=== PATIENT | male | born 1955 | race Caucasian/White ===

== ENCOUNTER 2018-05-08 08:46 | Inpatient (IN) | payer MEDICARE ==
[2018-05-08 09:22] LABS: BASO % 0.6 % (0-6); EOS % 6.3 % (0-6); GRAN % 57.7 % (47-80); HEMATOCRIT 35.5 % (42.0-52.0); HEMOGLOBIN 11.2 gm/dl (14.0-18.0); LYMPH % 27.7 % (16-45); MEAN CELL VOLUME 99.4 fl (81-97); MEAN CORPUSCULAR HGB CONC 31.5 g/dl (32-36); MEAN PLATELET VOLUME 8.3 fl (7.4-10.4); MONO % 7.7 % (0-9); PLATELET COUNT 532 K/uL (130-400); RED BLOOD COUNT 3.57 M/uL (4.40-5.70); WHITE BLOOD COUNT W/O DIFF 5.1 K/uL (4.2-12.2)
[2018-05-08 09:23] LABS: MEAN CORPUSCULAR HEMOGLOBIN 31.3 pg (27-33)
--- NOTE | 2018-05-08 09:30 | Emergency Department Record ---
History of Present Illness - General Chief Complaint: Back Pain/Injury Stated Complaint: REDDNESS AROUND PUMP IMPLANT SITE Time Seen by Provider: 05/08/18 08:59 Source: Patient Mode of Arrival: Ambulatory Limitations: No limitations - History of Present Illness Initial Comments: pt had a pain pump placed in february. he now has increasing erythema over site. his family doctor started him on levaquin 4 days ago. he has had a pain pump in the past that had to be removed because of infection MD Complaint: Back pain Onset/Timin -: Week(s) Similar Symptoms Previously: No Place: Home Radiation: None Consistency: Constant Improves With: None Worsens With: None Context: Unknown Associated Symptoms: Denies other symptoms - Related Data Home Medications Medication Instructions Recorded Confirmed Last Taken Duloxetine HCl [Cymbalta] 60 mg PO DAILY 05/08/18 05/08/18 Unknown Gabapentin 300 mg PO TID 05/08/18 05/08/18 Unknown Hydromorphone HCl [Dilaudid 0.5 0.5 mg .ROUTE DAILY 05/08/18 05/08/18 Unknown mg/0.5 ml Syringe] Levofloxacin [Levaquin] 500 mg PO DAILY 05/08/18 05/08/18 Unknown Oxycodone HCl/Acetaminophen 10 mg PO Q6H 05/08/18 05/08/18 Unknown [Percocet 10mg/325mg] Allergies Allergy/AdvReac Type Severity Reaction Status Date / Time aspirin [ASPIRIN] Allergy Unknown Unverified 11/15/13 10:15 Penicillins [PENICILLINS] Allergy Unknown Unverified 11/15/13 10:15 Travel Screening - Travel/Exposure Within Last 30 Days Have you traveled within the last 30 days?: No Review of Systems Reviewed: No additional complaints except as noted below Constitutional: Reports: As per HPI. Denies: Chills, Fever, Malaise, Night sweats, Weakness, Weight change Eyes: Reports: As per HPI. Denies: Eye discharge, Eye pain, Photophobia, Vision change ENT: Reports: As per HPI. Denies: Congestion, Dental pain, Ear pain, Epistaxis , Hearing loss, Throat pain Respiratory: Reports: As per HPI. Denies: Cough, Dyspnea, Hemoptysis, Stridor, Wheezes Cardiovascular: Reports: As per HPI. Denies: Arrhythmia, Chest pain, Dyspnea on exertion, Edema, Murmurs, Orthopnea, Palpitations, Paroxysmal nocturnal dyspnea, Rheumatic Fever, Syncope Endocrine: Reports: As per HPI. Denies: Fatigue, Heat or cold intolerance, Polydipsia, Polyuria Gastrointestinal: Reports: As per HPI. Denies: Abdominal pain, Constipation, Diarrhea, Hematemesis, Hematochezia, Melena, Nausea, Vomiting Genitourinary: Reports: As per HPI. Denies: Dysuria, Frequency, Hematuria, Incontinence, Retention, Testicular pain, Testicular mass, Urgency Musculoskeletal: Reports: As per HPI. Denies: Arthralgia, Back pain, Gout, Joint swelling, Myalgia, Neck pain Skin: Reports: As per HPI. Denies: Bruising, Change in color, Change in hair/ nails, Lesions, Pruritus, Rash Neurological: Reports: As per HPI. Denies: Abnormal gait, Confusion, Headache, Numbness, Paresthesias, Seizure, Tingling, Tremors, Vertigo, Weakness Psychiatric: Reports: As per HPI. Denies: Anxiety, Auditory hallucinations, Depression, Homicidal thoughts, Suicidal thoughts, Visual hallucinations Hematological/Lymphatic: Reports: As per HPI. 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 factor five clotting disorder; never tested alot of it in the family) Hx Blood Transfusions: Yes (1976) Family Medical History Any Significant Family History?: Yes Family Hx Comment (NOT TO BE USED IN PLACE OF ITEMS BELOW): factor five clotting disorder ? carrier? (mother, sisters, and pt daughter all have it) Physical Exam - General General Appearance: Alert, Oriented x3, Cooperative, No acute distress - Head Head exam: Normal inspection - Eye Eye exam: Normal appearance, PERRL, EOMI Pupils: Normal accommodation - ENT ENT exam: Normal exam, Mucous membranes moist, Normal external ear exam, Normal orophraynx Ear exam: Normal external inspection. negative: External canal tenderness Nasal Exam: Normal inspection. negative: Discharge, Sinus tenderness Mouth exam: Normal external inspection, Tongue normal Teeth exam: Normal inspection. negative: Dental caries Throat exam: Normal inspection. negative: Tonsillar erythema, Tonsillar exudate - Neck Neck exam: Normal inspection, Full ROM. negative: Tenderness - Respiratory Respiratory exam: Normal lung sounds bilaterally. negative: Respiratory distress - Cardiovascular Cardiovascular Exam: Regular rate, Normal rhythm, Normal heart sounds - GI/Abdominal GI/Abdominal exam: Soft, Normal bowel sounds. negative: Tenderness - Rectal Rectal exam: Deferred - exam: Deferred - Extremities Extremities exam: Normal inspection, Full ROM, Normal capillary refill. negative: Tenderness - Back Back exam: Reports: Full ROM, Rash noted (erythema and swelling over pain pump) , Tenderness. Denies: Muscle spasm - Neurological Neurological exam: Alert, CN II-XII intact, Normal gait, Oriented X3 - Psychiatric Psychiatric exam: Normal affect, Normal mood - Skin Skin exam: Dry, Intact, Normal color, Warm Course Vital Signs 05/08/18 08:51 Temperature 97.9 F Pulse Rate 78 Respiratory 16 Rate Blood Pressure 133/85 Pulse Ox 96 Medical Decision Making - Lab Data Result diagrams: 05/08/18 09:15 05/08/18 09:15 Lab Results 05/08/18 Range/Units 09:15 WBC 5.1 (4.2-12.2) K/uL RBC 3.57 L (4.40-5.70) M/uL Hgb 11.2 L (14.0-18.0) gm/dl Hct 35.5 L (42.0-52.0) % MCV 99.4 H (81-97) fl MCH 31.3 (27-33) pg MCHC 31.5 L (32-36) g/dl RDW 13.0 (11.5-14.5) % Plt Count 532 H (130-400) K/uL MPV 8.3 (7.4-10.4) fl Gran % 57.7 (47-80) % Lymphocytes % 27.7 (16-45) % Monocytes % 7.7 (0-9) % Eosinophils % 6.3 H (0-6) % Basophils % 0.6 (0-6) % Disposition Disposition: Admit Clinical Impression: Cellulitis Qualifiers: Site of cellulitis: trunk Site of cellulitis of trunk: back Qualified Code(s): L03.312 - Cellulitis of back [any part except buttock] Disposition: Still a Patient at [facility] Decision to Admit: Admit from ER Decision to Admit Date: 05/08/18 Decision to Admit Time: 11:15 Forms: Patient Portal Access Quality - Quality Measures Quality Measures: N/A - Blood Pressure Screening Does Patient Have Any of the Following: No Blood Pressure Classification: Pre-Hypertensive BP Reading Systolic Measurement: 133 Diastolic Measurement: 85 Screening for High Blood Pressure: < Pre-Hypertensive BP, F/U Documented > [ [id number]] Pre-Hypertensive Follow-up Interventions: Follow-up with rescreen every year.
[2018-05-08 09:35] LABS: BLOOD UREA NITROGEN 14 mg/dL (8-23); CREATININE 1.2 mg/dL (0.7-1.2); EST GLOMERULAR FILTRATION RATE > 60 mL/min
[2018-05-08 09:38] LABS: GLUCOSE,RANDOM 86 mg/dL (74-109)
[2018-05-08] MEDS ORDERED: ACETAMINOPHEN 500 MG TABLET PO PRN (12:17)
[2018-05-08] MEDS ORDERED: OXYCODONE/APAP 10MG-325MG TABLET PO SCH (12:17)
[2018-05-08] MEDS: OXYCODONE/APAP 10MG-325MG TABLET PO SCH ×3 (13:13→21:20)
[2018-05-08] MEDS: NICOTINE 21 MG/24 HOUR PATCH TD SCH (13:13)
[2018-05-08] MEDS: CLINDAMYCIN 600MG/50ML PREMIX 600 MG/50 ML BAG IVPB SCH ×2 (13:14→21:19)
--- NOTE | 2018-05-08 15:36 | Rehab Evaluation ---
Patient Information - Patient Information Diagnosis: cellulitis Ordered Treatment: PT Evaluate and Treat Status: Initial Evaluation History: Detail (The patient presented to ED with complaints of redness in area of pain pump. The patient was transferred to inpatient floor for infusions. The patient was referred to recent frequent falls.) Past Medical/Surgical Hx: PAST MEDICAL/SURGICAL HISTORY Past Surgical History pain pump removal -2016 for infection in spine pain pump pocket revision PAIN PUMP TRIAL/IMPLANT WITH DILAUDID RT LEG BKA WITH FEW SX TO CORRECT KNEE SCOPES Pain pump placed 2017 PMH - Respiratory Hx Respiratory Disorders Yes Hx Asthma Yes: in Spring sometimes from pollen no problems or inhaler for 2 yrs. Hx Bronchitis Yes PMH - Cardiovascular Hx Cardiovascular Disorders Yes Hx Deep Vein Thrombosis Yes: right leg 1976 from traumatic injury led to BTKA Hx Hypertension Yes: on meds good control PMH - Neuro Hx Neurological Disorders No PMH - GI Hx Gastrointestinal Disorders No PMH - Hx Genitourinary Disorders No PMH - Endocrine Hx Endocrine Disorders No PMH - Musculoskeletal Hx Musculoskeletal Disorders Yes Hx Arthritis Yes Comment: RT BKA FROM WORK ACCIDENT PMH - Psych Hx Psychiatric Problems Yes Hx Depression Yes PMH - Hematology/Oncology Hx Hematology/Oncology Yes Disorders Hx Clotting Problems Yes: ? factor five clotting disorder; never tested alot of it in the family Premorbid Status: Detail (The patient reports he is independent with all mobility and ambulates with cane and without device with R prosthesis.) Social History: Detail (The patient lives with spouse in 2 story house with 2 steps at the enterance and 13 steps to the second story. One handrail is present on both sets of stairs. The patient's bathroom is equipped with a tub/ shower combination and a standard toilet. No grab bars are present. The patient completes the laundry , most of the cleaning and yard work.) Precautions: [place], Fall - Time With Patient Total Time Spent With Patient (Min): 30 Treatment Procedures: Detail (Initial Evaluation) Subjective Information - Subjective Information Per Patient (The patient reports after he started taking lisinopril a few weeks ago , he passed out 3 times and fell. He denies falling since he discontinued the medication.) Objective Data - Pain Pain Present: Yes (The patient complains of R side lower back, buttock region pain radiating into R hip and inot the front of R residual limb. The patient also complains of tingling in the same region. The patient did not rate his pain using 0-10 pain scale.) - Mental Status Patient Orientation: Oriented x3 - Visual Perception Appears within normal limits for therapeutic activities - ROM Within normal limits - Strength/Tone Within normal limits (The patient's bilateral UE and LE strength was generally 5 /5.) - Bed Mobility Independent (The patient was independent with supine to and from sit and rolling.) - Transfers Independent (The patient was independent with sit to and from stand transfer.) - Balance Balance Sitting: Good Balance Standing: Good (The patient scored 26/28 using the Tinetti Assessment Tool which is in the low risk for falling category.) - Sensation Intact - Gait Detail (The patient ambulated without assistive device independently 20 feet x 1 with no gait deviations.) Therapy Assessment - Therapy Assessment Detail (The patient exhibits independence with all mobility and ambulation, normal strength and low risk for fall using the Tinetti Assessment Tool. Due to patient's history of falls however, it was explained to patient he should call Nursing when going to the bathroom or ambulating. Due to stable condition the patient the patient's PT eval was low complexity.) Patient Education - Patient Education Teaching Topic: Precautions (The patient is aware of the safety precaution of calling nursing staff when going to the bathroom or ambulating and demonstrated good understanding of this.) Response: Verbalize Understanding Teaching Method: Discussion Teaching Recipient: Patient Barriers To Learning: None Problem List - Problem List Physical Therapy Problem List: Detail (History of falls) Goals - Goals Physical Therapy Goals: No PT goals at this time. Good balance and independent with mobility. Prognosis - Prognosis Good Plan - Plan Physical Therapy Plan: No further PT is required. Patient it so ambulate with nursing staff present for safety.
[2018-05-08] MEDS ORDERED: GABAPENTIN 300 MG CAPSULE PO SCH ×2 (16:00→22:00)
--- NOTE | 2018-05-08 16:13 | History & Physical ---
History of Present Illness - Date of Service Date of Service for History & Physical: 05/09/18 - History of Present Illness Admitting Diagnosis: cellulitis History of Present Illness: Mr. Schumacher is a 62 year old male who presented to the ED on for evaluation of redness around pain pump. His pain pump was inserted by Dr. Keane in February 2018, he recently fell (due to low BP per pt.) and he has been experiencing increasing erythema over the pump site. Dr. Keane started him on levaquin 4 days ago. He does have a history of pain pump infection in the past, leading to removal (different site). 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 In the ED, his vitals were stable. CBC and CMP were unremarkable. Abd/ pelvis CT demonstrated some soft tissue swelling around pain pump, possible fluid pocket, no abscess visualized, however, there was a great deal of artifact due to metal pump. Lumbar spine xray demonstrated proper placement of pain pump and catheter. Due to pt's history of past infection and increasing erythema around his pain pump, he was admitted for IV antibiotics and monitoring. 05/08/18 Pt. is sitting up in bed, he currently denies pain. There is some redness around the border of his pain pump, left lower back. Vitals have remained stable. Plan to continue IV clindamycin 600mg q8h. PT eval ordered to assess strength and balance with recent hx of fall- pt. was found to have normal strength and low risk for fall. 05/09/18 Pt. is sitting up in bed. He denies pain, VS have remained stable and his am labs were unremarkable. Area of erythema/redness has not progressed since yesterday- appears to look more like bruising today. Plan to d/c home today with PO clindamycin and pt. to f/u with Dr. Keane on 05/14. PCP: Dr. Mendoza-Braulio Pain management: Dr. Keane Travel Screening - Travel/Exposure Within Last 30 Days Have you traveled within the last 30 days?: No - Travel/Exposure Within Last Year Have you traveled outside the [place] in the last year?: No - Additonal Travel Details Have you been exposed to anyone with a communicable illness?: No - Travel Symptoms Symptom Screening: None Review of Systems Constitutional: Reports: As per HPI. Denies: Chills, Fever, Malaise, Night sweats, Weakness, Weight change Eyes: Reports: As per HPI. Denies: Eye discharge, Eye pain, Photophobia, Vision change ENT: Reports: As per HPI. Denies: Congestion, Dental pain, Ear pain, Epistaxis , Hearing loss, Throat pain Respiratory: Reports: As per HPI. Denies: Cough, Dyspnea, Hemoptysis, Stridor, Wheezes Cardiovascular: Reports: As per HPI. Denies: Arrhythmia, Chest pain, Dyspnea on exertion, Edema, Murmurs, Orthopnea, Palpitations, Paroxysmal nocturnal dyspnea, Rheumatic Fever, Syncope Endocrine: Reports: As per HPI. Denies: Fatigue, Heat or cold intolerance, Polydipsia, Polyuria Gastrointestinal: Reports: As per HPI. Denies: Abdominal pain, Constipation, Diarrhea, Hematemesis, Hematochezia, Melena, Nausea, Vomiting Genitourinary: Reports: As per HPI. Denies: Dysuria, Frequency, Hematuria, Incontinence, Retention, Testicular pain, Testicular mass, Urgency Musculoskeletal: Reports: As per HPI. Denies: Arthralgia, Back pain, Gout, Joint swelling, Myalgia, Neck pain Skin: Reports: As per HPI. Denies: Bruising, Change in color, Change in hair/ nails, Lesions, Pruritus, Rash Neurological: Reports: As per HPI. Denies: Abnormal gait, Confusion, Headache, Numbness, Paresthesias, Seizure, Tingling, Tremors, Vertigo, Weakness Psychiatric: Reports: As per HPI. Denies: Anxiety, Auditory hallucinations, Depression, Homicidal thoughts, Suicidal thoughts, Visual hallucinations Hematological/Lymphatic: Reports: As per HPI. Denies: Anemia, Blood Clots, Easy bleeding, Easy bruising, Swollen glands Past Medical History - SOCIAL HISTORY Smoking Status: Current every day smoker Alcohol Use: None Drug Use: None - RESPIRATORY Hx Respiratory Disorders: Yes Hx Asthma: Yes (in Spring sometimes from pollen no problems or inhaler for 2 yrs.) Hx Bronchitis: Yes - CARDIOVASCULAR Hx Cardio Disorders: Yes Hx Deep Vein Thrombosis: Yes (right leg 1977 from traumatic injury led to BTKA) Hx Hypertension: Yes (on meds good control) - NEURO Hx Neuro Disorders: No - GI Hx GI Disorders: No - Hx Genitourinary Disorders: No - ENDOCRINE Hx Endocrine Disorders: No - MUSCULOSKELETAL Hx Musculoskeletal Disorders: Yes Hx Arthritis: Yes Comment:: RT BKA FROM WORK ACCIDENT - PSYCH Hx Psych Problems: Yes Hx Depression: Yes - HEMATOLOGY/ONCOLOGY Hx Hematology/Oncology Disorders: Yes Hx Clotting Problems: Yes (? factor five clotting disorder; never tested alot of it in the family) Hx Blood Transfusions: Yes (1976) Family Medical History Any Significant Family History?: Yes Family Hx Comment (NOT TO BE USED IN PLACE OF ITEMS BELOW): factor five clotting disorder ? carrier? (mother, sisters, and pt daughter all have it) H&P Meds/Allergies - Allergies Allergies: Allergies Allergy/AdvReac Type Severity Reaction Status Date / Time aspirin [ASPIRIN] Allergy Unknown Unverified 11/15/13 10:15 Penicillins [PENICILLINS] Allergy Unknown Unverified 11/15/13 10:15 - Home Medications Home Medications Medication Instructions Recorded Confirmed Last Taken Duloxetine HCl [Cymbalta] 60 mg PO DAILY 05/08/18 05/08/18 Unknown Gabapentin 300 mg PO TID 05/08/18 05/08/18 Unknown Hydromorphone HCl [Dilaudid 0.5 0.5 mg .ROUTE DAILY 05/08/18 05/08/18 Unknown mg/0.5 ml Syringe] Levofloxacin [Levaquin] 500 mg PO DAILY 05/08/18 05/08/18 Unknown Oxycodone HCl/Acetaminophen 10 mg PO Q6H 05/08/18 05/08/18 Unknown [Percocet 10mg/325mg] - Active Medications Active Medications: Current Medications Acetaminophen (Tylenol 500mg Tab) 1,000 mg PO Q6H PRN PRN Reason: PAIN - MILD(1-4)/FEVER Duloxetine HCl (Cymbalta) 60 mg PO DAILY [facility] Gabapentin (Neurontin) 300 mg PO 1000,1600 [facility] Gabapentin (Neurontin) 600 mg PO QHS [facility] Gabapentin (Neurontin) 200 mg PO QHS [facility] Clindamycin Phosphate (Cleocin 600 [id number]) 600 mg in 50 mls @ 100 mls/ hr IVPB Q8HR [facility] Last Infusion: 05/08/18 13:56 Dose: Infused Nicotine (Nicotine 21mg) 1 patch TD DAILY [facility] Last Admin: 05/08/18 13:13 Dose: 1 patch Oxycodone/Acetaminophen (Percocet 10-325 Mg Tablet) 2 each PO 0800,2100 [facility] Oxycodone/Acetaminophen (Percocet 10-325 Mg Tablet) 1 each PO 1200,1600 [facility] Last Admin: 05/08/18 13:13 Dose: 1 each Physical Exam - Vital Signs Vital Signs: Vital Signs - Last 24 Hrs Temp Pulse Pulse Resp BP BP Pulse Ox 05/08/18 12:36 82 18 05/08/18 12:10 98.4 F 82 18 110/72 96 05/08/18 11:38 74 18 132/93 97 05/08/18 08:51 97.9 F 78 16 133/85 96 - General General Appearance: Alert, Oriented x3, Cooperative, No acute distress Limitations: No limitations - Head Head exam: Normal inspection - Eye Eye exam: Normal appearance, PERRL, EOMI Pupils: Normal accommodation - ENT ENT exam: Normal exam, Mucous membranes moist, Normal external ear exam, Normal orophraynx Ear exam: Normal external inspection. negative: External canal tenderness Nasal Exam: Normal inspection. negative: Discharge, Sinus tenderness Mouth exam: Normal external inspection, Tongue normal Teeth exam: Normal inspection. negative: Dental caries Throat exam: Normal inspection. negative: Tonsillar erythema, Tonsillar exudate - Neck Neck exam: Normal inspection, Full ROM. negative: Tenderness - Respiratory Respiratory exam: Normal lung sounds bilaterally. negative: Respiratory distress - Cardiovascular Cardiovascular Exam: Regular rate, Normal rhythm, Normal heart sounds - GI/Abdominal GI/Abdominal exam: Soft, Normal bowel sounds. negative: Tenderness - Rectal Rectal exam: Deferred - exam: Deferred - Extremities Extremities exam: Normal inspection, Full ROM, Normal capillary refill. negative: Tenderness - Back Back exam: Reports: Full ROM, Rash noted (erythema and swelling over pain pump) , Tenderness. Denies: Muscle spasm - Neurological Neurological exam: Alert, CN II-XII intact, Normal gait, Oriented X3 - Psychiatric Psychiatric exam: Normal affect, Normal mood - Skin Skin exam: Dry, Intact, Normal color, Warm Results - Labs Result Diagrams: 05/09/18 06:00 05/09/18 06:00 Labs Last 24 Hours: Laboratory Results - last 24 hr 05/08/18 05/08/18 09:15 09:15 WBC 5.1 RBC 3.57 L Hgb 11.2 L Hct 35.5 L MCV 99.4 H MCH 31.3 MCHC 31.5 L RDW 13.0 Plt Count 532 H MPV 8.3 Gran % 57.7 Lymphocytes % 27.7 Monocytes % 7.7 Eosinophils % 6.3 H Basophils % 0.6 Sodium 141 Potassium 4.2 Chloride 103 Carbon Dioxide 27.0 Anion Gap 11.0 BUN 14 Creatinine 1.2 Estimated GFR > 60 Random Glucose 86 Calcium 8.7 L VTE H&P Assessment - Risk for VTE Risk for VTE: Yes Risk Level: Low Risk Assessment Date: 05/08/18 Risk Assessment Time: 16:09 VTE Orders Placed or Will Be Placed: Yes Plan - Inpatient Certification Inpatient Certification: Admit to inpatient care: Based on my medical assessment, after consideration of patient's risk factors (age, co-morbidities and patient presenting symptoms and acuity), I expect that this patient will remain in the hospital greater than or equal to two midnights and that the services needed warrant inpatient care because: Patient Risk Factors: [] Estimated length of stay: [] The patient may reasonably be expected to be discharged or transferred to a hospital within 96 hours after admission to [facility]. Services needed: [] Post hospital care (if known): [] I certify that my determination is in accordance with my understanding of Medicare requirements for reasonable and necessary inpatient services. - Detailed Diagnosis and Plan (1) Cellulitis Current Visit: Yes Status: Acute Qualifiers: Site of cellulitis: trunk Site of cellulitis of trunk: back Qualified Code(s): L03.312 - Cellulitis of back [any part except buttock] Base Code: L03.90 - CELLULITIS, UNSPECIFIED Comment: 05/09/18: -Pt admitted for cellulitis of tissue surrounding left lower back pain pump device -Clinda 600mg IV qh8 changed to 600mg PO q12h, first home dose tonight at 1900 -Pt. to f/u with Dr. Keane on 05/14/18 (2) At risk for deep venous thrombosis Current Visit: Yes Status: Acute Base Code: Z91.89 - OTH PERSONAL RISK FACTORS, NOT ELSEWHERE CLASSIFIED Comment: 05/09/18: -Will not d/c home with prophylaxis because mobility not impaired (3) DNR (do not resuscitate) Current Visit: Yes Status: Acute Base Code: Z66 - DO NOT RESUSCITATE Comment: 05/09/18: -Pt. is a DNR
[2018-05-08] MEDS: GABAPENTIN 300 MG CAPSULE PO SCH (16:55)
[2018-05-08] MEDS ORDERED: GABAPENTIN 100 MG CAPSULE PO SCH (22:00)
[2018-05-08] MEDS ORDERED: ENOXAPARIN 40 MG/0.4 ML SYR SQ SCH (22:00)
[2018-05-09] MEDS: CLINDAMYCIN 600MG/50ML PREMIX 600 MG/50 ML BAG IVPB SCH (06:06)
[2018-05-09 06:23] LABS: HEMATOCRIT 32.8 % (42.0-52.0); HEMOGLOBIN 10.6 gm/dl (14.0-18.0); MEAN CELL VOLUME 98.5 fl (81-97); MEAN CORPUSCULAR HEMOGLOBIN 31.8 pg (27-33); MEAN CORPUSCULAR HGB CONC 32.3 g/dl (32-36); MEAN PLATELET VOLUME 8.5 fl (7.4-10.4); PLATELET COUNT 508 K/uL (130-400); RED BLOOD COUNT 3.33 M/uL (4.40-5.70); RED CELL DISTRIBUTION WIDTH 12.8 % (11.5-14.5)
[2018-05-09 06:36] LABS: ALB/GLOB RATIO 1.2 (1.1-1.8); ALBUMIN 3.3 g/dL (4.0-5.0); ALKALINE PHOSPHATASE 70 U/L (40-129); ALT/SGPT 8 U/L (<41); AST/SGOT 14 U/L (10.0-50.0); BLOOD UREA NITROGEN 13 mg/dL (8-23); EST GLOMERULAR FILTRATION RATE > 60 mL/min; GLUCOSE,RANDOM 97 mg/dL (74-109)
[2018-05-09] MEDS: GABAPENTIN 300 MG CAPSULE PO SCH ×2 (07:18→09:59)
[2018-05-09] MEDS: DULOXETINE HCL 30 MG CAPSULE.DR PO SCH ×2 (07:18→09:58)
[2018-05-09] MEDS: OXYCODONE/APAP 10MG-325MG TABLET PO SCH (07:18)
[2018-05-09 07:39] LABS: BASO % 0.8 % (0-6); EOS % 7.4 % (0-6); GRAN % 43.8 % (47-80); LYMPH % 39.8 % (16-45); MONO % 8.2 % (0-9)
--- NOTE | 2018-05-09 09:13 | Discharge Summary ---
Providers Discharge Summary Date: 05/09/18 Date of admission: 05/08/18 11:59 Expected Date of Discharge: 05/09/18 Attending physician: SIXTO PATIÑO Primary care physician: REINA DUMONT D.O. Physical Exam - Vital Signs Vital Signs: Vital Signs - Last 24 Hrs Temp Pulse Pulse Resp BP BP Pulse Ox 05/09/18 07:57 16 05/09/18 04:00 97.5 F L 67 18 143/90 96 05/08/18 20:17 97.9 F 76 18 146/94 97 05/08/18 12:36 82 18 05/08/18 12:10 98.4 F 82 18 110/72 96 05/08/18 11:38 74 18 132/93 97 - General General Appearance: Alert, Oriented x3, Cooperative, No acute distress Limitations: No limitations - Head Head exam: Normal inspection - Eye Eye exam: Normal appearance, PERRL, EOMI Pupils: Normal accommodation - ENT ENT exam: Normal exam, Mucous membranes moist, Normal external ear exam, Normal orophraynx Ear exam: Normal external inspection. negative: External canal tenderness Nasal Exam: Normal inspection. negative: Discharge, Sinus tenderness Mouth exam: Normal external inspection, Tongue normal Teeth exam: Normal inspection. negative: Dental caries Throat exam: Normal inspection. negative: Tonsillar erythema, Tonsillar exudate - Neck Neck exam: Normal inspection, Full ROM. negative: Tenderness - Respiratory Respiratory exam: Normal lung sounds bilaterally. negative: Respiratory distress - Cardiovascular Cardiovascular Exam: Regular rate, Normal rhythm, Normal heart sounds - GI/Abdominal GI/Abdominal exam: Soft, Normal bowel sounds. negative: Tenderness - Rectal Rectal exam: Deferred - exam: Deferred - Extremities Extremities exam: Normal inspection, Full ROM, Normal capillary refill. negative: Tenderness - Back Back exam: Reports: Full ROM, Rash noted (erythema and swelling over pain pump) , Tenderness. Denies: Muscle spasm - Neurological Neurological exam: Alert, CN II-XII intact, Normal gait, Oriented X3 - Psychiatric Psychiatric exam: Normal affect, Normal mood - Skin Skin exam: Dry, Intact, Warm, Other (slight redness around pain pump in left lower back) Hospitalization - Hospitalization Admission Diagnosis: cellulitis - Problem List/Discharge Diagnosis (1) Cellulitis Current Visit: Yes Status: Acute Discharge Diagnosis: Site of cellulitis: trunk Site of cellulitis of trunk: back Qualified Code(s): L03.312 - Cellulitis of back [any part except buttock] Base Code: L03.90 - CELLULITIS, UNSPECIFIED Comment: 05/09/18: -Pt admitted for cellulitis of tissue surrounding left lower back pain pump device -Clinda 600mg IV qh8 changed to 600mg PO q12h, first home dose tonight at 1900 -Pt. to f/u with Dr. Keane on 05/14/18 (2) At risk for deep venous thrombosis Current Visit: Yes Status: Acute Base Code: Z91.89 - OTH PERSONAL RISK FACTORS, NOT ELSEWHERE CLASSIFIED Comment: 05/09/18: -Will not d/c home with prophylaxis because mobility not impaired (3) DNR (do not resuscitate) Current Visit: Yes Status: Acute Base Code: Z66 - DO NOT RESUSCITATE Comment: 05/09/18: -Pt. is a DNR - Disposition Discharge home, self-care - Hospitalization Course Disposition: Home, Self-Care Hospital Course: Mr. Schumacher is a 62 year old male who presented to the ED on for evaluation of redness around pain pump. His pain pump was inserted by Dr. Keane in February 2018, he recently fell (due to low BP per pt.) and he has been experiencing increasing erythema over the pump site. Dr. Keane started him on levaquin 4 days ago. He does have a history of pain pump infection in the past, leading to removal (different site). 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 In the ED, his vitals were stable. CBC and CMP were unremarkable. Abd/ pelvis CT demonstrated some soft tissue swelling around pain pump, possible fluid pocket, no abscess visualized, however, there was a great deal of artifact due to metal pump. Lumbar spine xray demonstrated proper placement of pain pump and catheter. Due to pt's history of past infection and increasing erythema around his pain pump, he was admitted for IV antibiotics and monitoring. 05/08/18 Pt. is sitting up in bed, he currently denies pain. There is some redness around the border of his pain pump, left lower back. Vitals have remained stable. Plan to continue IV clindamycin 600mg q8h. PT eval ordered to assess strength and balance with recent hx of fall- pt. was found to have normal strength and low risk for fall. 05/09/18 Pt. is sitting up in bed. He denies pain, VS have remained stable and his am labs were unremarkable. Area of erythema/redness has not progressed since yesterday- appears to look more like bruising today. Plan to d/c home today with PO clindamycin and pt. to f/u with Dr. Keane on 05/14. PCP: Dr. Tucker Pain management: Dr. Keane Procedures: Imaging and X-Rays 05/08/18 09:07 ABDOMEN/PELVIS WO CONTRAST [CT] Stat 05/08/18 10:26 LUMBAR SPINE / AP LAT [RAD] Stat Abnormal Labs: Abnormal Lab Results 05/08/18 05/08/18 05/09/18 Range/Units 09:15 09:15 06:00 RBC 3.57 L 3.33 L (4.40-5.70) M/uL Hgb 11.2 L 10.6 L (14.0-18.0) gm/dl Hct 35.5 L 32.8 L (42.0-52.0) % MCV 99.4 H 98.5 H (81-97) fl MCHC 31.5 L (32-36) g/dl Plt Count 532 H 508 H (130-400) K/uL Gran % 43.8 L (47-80) % Eosinophils % 6.3 H 7.4 H (0-6) % Calcium 8.7 L (8.8-10.2) mg/dL Total Protein (6.6-8.7) g/dL Albumin (4.0-5.0) g/dL 05/09/18 Range/Units 06:00 RBC (4.40-5.70) M/uL Hgb (14.0-18.0) gm/dl Hct (42.0-52.0) % MCV (81-97) fl MCHC (32-36) g/dl Plt Count (130-400) K/uL Gran % (47-80) % Eosinophils % (0-6) % Calcium 8.2 L (8.8-10.2) mg/dL Total Protein 6.0 L (6.6-8.7) g/dL Albumin 3.3 L (4.0-5.0) g/dL Condition at Discharge: (2) Stable Discharge Diagnosis: Soft-tissue injury to left lower back, site of pain pump VTE Discharge VTE Reason For No Overlap Therapy: Not Indicated Discharge Medications - Discharge Medications Prescriptions: Clindamycin HCl 300 mg PO Q12H #20 capsule Home Medications: Ambulatory Orders Duloxetine HCl [Cymbalta] 60 mg PO DAILY 05/08/18 [Last Taken Unknown] Gabapentin 300 mg PO TID 05/08/18 [Last Taken Unknown] Hydromorphone HCl [Dilaudid] 0.5 mg .ROUTE DAILY 05/08/18 [Last Taken Unknown] Oxycodone HCl/Acetaminophen [Percocet 10mg/325mg] 10 mg PO Q6H 05/08/18 [Last Taken Unknown] Clindamycin HCl 300 mg PO Q12H #20 capsule 05/09/18 [Last Taken Unknown] Discharge Plan - Discharge Instructions Activity at Discharge: Resume Usual Activities As Tolerated Diet at Discharge: Regular Diet Instructions: Contusion in Adults (DC) Additional Instructions: Follow up with Dr. Wright on 05/14/18 Return to the ED if redness/swelling worsens, or if you develop a fever, or for any chest pain. Quality Measures - Quality Measures Quality Measures: Documentation of Current Medications in Medical Record, Screening for High Blood Pressure and F/U Documented - Current Medications Quality Measure: Measure #130: Documentation of Current Medications Documentation of Current Medications: <Current Medications Documented/Reviewed> [[id number]] - Blood Pressure Screening Quality Measure: Screening for High Blood Pressure and Follow-Up Documented Does Patient Have Any of the Following: Active Dx of HTN Blood Pressure Classification: Hypertensive Reading Systolic Measurement: 132 Diastolic Measurement: 93 Screening for High Blood Pressure: Patient Exclusion, Hx of HTN [G9744] - Elder Abuse Suspicion Index EASI Reference Information: Leisa MARAVILLA, Tika C, Guillermina D, Gabriel Spencer.Development and validation of a tool to assist physicians identification of elder abuse: The Elder Abuse Suspicion Index (EASI ). Journal of Elder Abuse and Neglect, 2008; 20 (3): 276-300.
[2018-05-09] MEDS: NICOTINE 21 MG/24 HOUR PATCH TD SCH (09:59)
[2018-05-09] MEDS ORDERED: HYDROMORPHONE HCL SCH (10:00)
[2018-05-09] MEDS ORDERED: CLINDAMYCIN 150 MG CAP PO SCH (19:00)
--- NOTE | 2018-05-10 20:56 | CT SCAN REPORT ---
EXAM: CT SCAN ABDOMEN/PELVIS WO CONTRAST HISTORY: RECENT PAIN PUMP IMPLANT, NOW HAD REDNESS, BURNING SENSATION AND WARM TO TOUCH NEAR SITE OF PAIN PUMP GENERATOR IMPLANT. POSSIBLE ABSCESS. TECHNIQUE: Axial CT scan of the abdomen and pelvis performed without oral or IV contrast. COMPARISON: None. FINDINGS: No calcified gallstones seen within the gallbladder. No intrarenal calculi identified on either side. There is a small low-attenuation mass arising from the posterior aspect of the left kidney measuring about 2.2 cm in size. This is incompletely evaluated without IV contrast and accurate density measurements cannot be made due to extensive artifact emanating from the metallic pump implant generator in the subcutaneous tissues of the left side of the back at the level of the kidney. If not previously documented, follow-up renal ultrasound may be able to confirm its identity as a cyst. As mentioned above, the pain pump is in place in the subcutaneous tissues overlying the left flank. This creates considerable adjacent artifact limiting evaluation of the adjacent soft tissues but no obvious discrete abscess identified. There is some fluid density in the midline of the back extending bilaterally superficial to the paraspinal musculature, which may just represent some dependent edema. Evaluation of the bowel and viscera extremely limited without oral or IV contrast. Given this limitation, no definite hepatic, splenic, adrenal, pancreatic, or right renal mass identified. Mild diverticulosis left side of the colon but no diverticulitis evident. Appendix visualized and appears negative with no appendicitis evident. Some streaky atelectasis in both lung bases. No free intraperitoneal air or free intraperitoneal fluid identified. Facet joint arthropathy in the lower lumbar spine is quite advanced. Degenerative disc disease at multiple levels in the lumbar as well. Prior laminectomy at the T12 level in particular. Pain pump catheter extends up to the T12 level. There is mild anterior subluxation of L4 on L5, which appears to be on a degenerative basis related to the extensive facet joint arthropathy. Mild lumbar curve to the right as well. IMPRESSION: 1. PAIN PUMP GENERATOR IN THE SUBCUTANEOUS TISSUES OF THE LEFT FLANK CREATING CONSIDERABLE LOCALIZED METALLIC STREAK ARTIFACT. SOME MILD FLUID DENSITY IN THE SUBCUTANEOUS TISSUES DEEP TO THE PARASPINAL MUSCULATURE BILATERALLY AT THIS LEVEL MAY JUST BE SOME DEPENDENT EDEMA WITH NO DEFINITE ABSCESS IDENTIFIED IMMEDIATELY ADJACENT TO THE METALLIC BATTERY PACK ITSELF. 2. LAMINECTOMY OF T12. THE PAIN PUMP CATHETER EXTENDS UP TO THE T12 LEVEL. 3. EXTENSIVE FACET JOINT ARTHROPATHY IN THE LUMBAR SPINE WITH ANTERIOR SUBLUXATION OF L4 ON L5, WHICH APPEARS TO BE ON A DEGENERATIVE BASIS. MULTILEVEL DEGENERATIVE DISC DISEASE WELL IN THE LUMBAR SPINE. 4. APPROXIMATELY 2.2 CM LOW-ATTENUATION MASS POSTERIORLY LEFT KIDNEY AT THE LEVEL OF THE PAIN PUMP GENERATOR. THIS IS INCOMPLETELY EVALUATED WITHOUT IV CONTRAST AND MAY JUST BE A SIMPLE CYST. FOLLOW-UP NONEMERGENT RENAL ULTRASOUND MIGHT BE USEFUL IN AN EFFORT TO CONFIRM. 5. DIVERTICULOSIS LEFT SIDE OF THE COLON BUT NO DIVERTICULITIS EVIDENT. 6. APPENDIX APPEARS NEGATIVE. NO FREE AIR OR FREE FLUID EVIDENT. NO INTRARENAL CALCULI EVIDENT. JOB NUMBER: [id number] [facility]
--- NOTE | 2018-05-10 22:22 | RADIOLOGY REPORT ---
EXAM: LUMBAR SPINE / AP LAT HISTORY: CATHETER AND PUMP PLACEMENT. TECHNIQUE: AP and lateral views lumbar spine. COMPARISON: AP portable lumbar spine 03/18/18. FINDINGS: Battery pack again seen overlying the left lower abdomen. A faint catheter extends from this through the lumbar spine and appears to terminate over the T12 vertebral body, as before. There may be a laminectomy defect at T12 and L1 and correlation with the prior surgical history is suggested. Multilevel degenerative disc disease in the lumbar spine. Slight anterior subluxation of L4 on L5, probably on the basis of facet joint arthropathy. Mild lumbar curve to the right. There is probably degenerative arthritis in the hips , particularly on the right. IMPRESSION: 1. PAIN PUMP IN PLACE ON THE LEFT WITH THE CATHETER TIP APPEARING TO TERMINATE AT THE T12 LEVEL, SIMILAR TO THAT SEEN ON 03/18/18. 2. THORACIC CURVE TO THE RIGHT WITH MULTILEVEL DEGENERATIVE CHANGE AND PROBABLY A LAMINECTOMY INVOLVING T12 AND L1. JOB NUMBER: [id number] [facility]TDD
== END 2018-05-09 09:50 | disposition home or self-care (01) | DRG 603 ==
LOC: ER 08:46 → MEDSURG 11:59 → UNDOADMIN 11:59
PROVIDERS: ADMIT Internal Medicine; ATTEND Internal Medicine
DX: L03.312 Cellulitis of back [any part except buttock and flank] (principal); I10 Essential (primary) hypertension; M19.90 Unspecified osteoarthritis, unspecified site; M47.9 Spondylosis, unspecified; Z89.9 Acquired absence of limb, unspecified; Z86.718 Personal history of other venous thrombosis and embolism; Z66 Do not resuscitate
CPT/HCPCS: 72100; 74176; 80048; 80053; 85025; 85027; 99223; 99285; J1650